=== PATIENT | female | born 1990 | race Caucasian/White ===

== ENCOUNTER 2018-02-08 04:29 | Emergency (ER) | payer MEDICAID, OTHER ==
[~2018-02-08] VITALS: Ht 170.2 cm; Wt 90.7 kg
[2018-02-08 04:29] VITALS: BP_SYST 134
[2018-02-08 04:45] VITALS: BP_SYST 134
== END 2018-02-08 04:59 | disposition home or self-care (01) ==
LOC: SED 04:29
DX: Z02.83 Encounter for blood-alcohol and blood-drug test (principal)
CPT/HCPCS: 82962

== ENCOUNTER 2018-10-15 00:24 | Emergency (ER) | payer MEDICAID, OTHER ==
[~2018-10-15] VITALS: Ht 170.2 cm; Wt 81.6 kg
[2018-10-15 00:26] VITALS: BP_SYST 139
[2018-10-15 01:05] VITALS: BP_SYST 139
== END 2018-10-15 01:05 ==
LOC: SED 00:24
DX: Z04.1 Encounter for examination and observation following transport accident (principal); Z88.6 Allergy status to analgesic agent; V89.2XXA Person injured in unspecified motor-vehicle accident, traffic, initial encounter; Y93.89 Activity, other specified; Y92.410 Unspecified street and highway as the place of occurrence of the external cause; Y99.8 Other external cause status
CPT/HCPCS: 99283

== ENCOUNTER 2023-09-03 10:14 | Emergency (ER) | payer MEDICAID, OTHER ==
[~2023-09-03] VITALS: Ht 170.2 cm; Wt 99.8 kg
[2023-09-03 10:14] VITALS: BP_SYST 108; PULSE 68; RESP 18; TEMP 97; O2SAT 98
== END 2023-09-03 10:30 ==
LOC: SED 10:14
DX: G40.909 Epilepsy, unspecified, not intractable, without status epilepticus (principal)
CPT/HCPCS: 99283

== ENCOUNTER 2023-09-03 16:19 | Emergency (ER) | payer OTHER ==
[~2023-09-03] VITALS: Ht 157.5 cm; Wt 86.2 kg
[2023-09-03 16:25] VITALS: BP_SYST 117; PULSE 69; RESP 18; TEMP 98.6; O2SAT 97
[2023-09-03 16:27] VITALS: BP_SYST 117; PULSE 69; RESP 18; TEMP 98.6; O2SAT 97
== END 2023-09-03 16:51 ==
LOC: SED 16:19
DX: F15.90 Other stimulant use, unspecified, uncomplicated (principal); R42 Dizziness and giddiness; F41.9 Anxiety disorder, unspecified; Z88.5 Allergy status to narcotic agent
CPT/HCPCS: 99283